=== PATIENT | male | born 1945 | race Caucasian/White ===

== ENCOUNTER → 2017-08-22 | Outpatient (CLI) | payer MEDICARE, OTHER ==
[2017-08-22 10:24] LABS: Blood Urea Nitrogen 21 mg/dL (9-20)
--- NOTE | 2017-08-23 11:08 | CT ---
EXAMINATION TYPE: CT abdomen pelvis wo con DATE OF EXAM: 08/22/2017 COMPARISON: NONE HISTORY: Hematuria, Rt flank pain, paint down Rt leg CT DLP: 1376.5 (abd pelvis without and abd with) mGycm Automated exposure control for dose reduction was used. TECHNIQUE: Helical acquisition of images was performed from the lung bases through the pelvis. FINDINGS: LUNG BASES: No significant abnormality is appreciated. LIVER/GB: No significant abnormality is appreciated. PANCREAS: No significant abnormality is seen. SPLEEN: No significant abnormality is seen. ADRENALS: No significant abnormality is seen. KIDNEYS/URETERS: No significant abnormality is seen. There is no hydronephrosis. No hydroureter. FREE AIR: No free air is visualized RETROPERITONEAL ADENOPATHY: None visualized REPRODUCTIVE ORGANS: The prostate is enlarged measuring 8 x 7 x 6 cm URINARY BLADDER: No significant abnormality is seen. No calcifications. PELVIC ADENOPATHY: None visualized. OSSEOUS STRUCTURES: No significant abnormality is seen. BOWEL: No significant abnormality is seen. The cecum is high positioned anatomically. The appendix i s retrocecal, with normal appearance. IMPRESSION: 1. NO ACUTE PROCESS. 2. PROSTATE HYPERTROPHY NOTED.
--- NOTE | 2017-08-23 11:13 | CT ---
EXAMINATION TYPE: CT abdomen w con DATE OF EXAM: 08/22/2017 COMPARISON: NONE HISTORY: Hematuria, Rt flank pain, paint down Rt leg CT DLP: 1376.5 (abd pelvis without and abd with) mGycm Automated exposure control for dose reduction was used. TECHNIQUE: Helical acquisition of images was performed from the lung bases through the top of iliac crest to include entire abdomen. CONTRAST: Performed with Oral Contrast and with IV Contrast, patient injected with 100 mL of Isovue 300. FINDINGS: LUNG BASES: No significant abnormality is appreciated. LIVER/GB: No significant abnormality is appreciated. PANCREAS: No significant abnormality is seen. SPLEEN: No significant abnormality is seen. ADRENALS: No significant abnormality is seen. KIDNEYS/UPPER COLLECTING SYSTEMS: No significant abnormality is seen. No calcifications. No hydroneph rosis. BOWEL: No significant abnormality is seen. LYMPH NODES: No significant abnormality is seen. OSSEOUS STRUCTURES: No significant abnormality is seen. FREE AIR: No free air is visualized. VASCULATURE: Unremarkable. IMPRESSION: NO ACUTE PROCESS; NO FOCAL FINDINGS.
== END | disposition home or self-care (01) ==
LOC: RADCTMAIN 09:43
PROVIDERS: ATTEND Urology
DX: N40.0 Benign prostatic hyperplasia without lower urinary tract symptoms (principal); R31.29 Other microscopic hematuria
CPT/HCPCS: 82565; 84520; 74160; 74176; 36415; Q9967

== ENCOUNTER → 2018-03-13 | Outpatient (CLI) | payer MEDICARE, OTHER | END | disposition home or self-care (01) | LOC: LABWHC1 14:27 | PROVIDERS: ATTEND Urology | DX: R97.20 Elevated prostate specific antigen [PSA] (principal) | CPT/HCPCS: 36415; 84153 ==

== ENCOUNTER 2024-03-20 15:53 | Inpatient (IN) | payer MEDICARE ==
[2024-03-20] MEDS: SODIUM CHLORIDE 0.9% 1,000 ML IV STA (16:15)
[2024-03-20 16:16] LABS: Basophils % (A) 0 %; Eosinophils # (A) 0.1 k/uL (0-0.7); Eosinophils % (A) 1 %; HCT 33.5 % (39.0-53.0); HGB 11.3 gm/dL (13.0-17.5); Lymphocytes # (A) 0.9 k/uL (1.0-4.8); Lymphocytes % (A) 7 %; MCH 32.5 pg (25.0-35.0); MCHC 33.7 g/dL (31.0-37.0); MCV 96.3 fL (80.0-100.0); Mean Platelet Volume 7.9; Monocytes # (A) 0.5 k/uL (0-1.0); Monocytes % (A) 4 %; Neutrophils # (A) 11.1 k/uL (1.3-7.7); Neutrophils % (A) 87 %; Platelet Count 214 k/uL (150-450); RBC 3.48 m/uL (4.30-5.90); RDW 13.3 % (11.5-15.5); WBC 12.7 k/uL (3.8-10.6)
[2024-03-20] MEDS: DIPH,PERTUS(ACELL)TETVAC-LF 0.5 ML VIAL IM ONE (16:19)
[2024-03-20 16:21] LABS: ALT 59 U/L (4-49); AST 55 U/L (17-59); African American GFR (CKD) 66 (>60 ml/min/1.73 sqM); Albumin 3.5 g/dL (3.5-5.0); Alcohol <10 mg/dL; Alkaline Phosphatase 60 U/L (38-126); Anion Gap 11 mmol/L; Blood Urea Nitrogen 66 mg/dL (9-20); Carbon Dioxide 23 mmol/L (22-30); Chloride 111 mmol/L (98-107); Glucose 101 mg/dL (74-99); Non-African American GFR(CKD) 57 (>60 ml/min/1.73 sqM); Potassium 3.9 mmol/L (3.5-5.1); Sodium 145 mmol/L (137-145); Total Bilirubin 0.8 mg/dL (0.2-1.3); Total Protein 5.8 g/dL (6.3-8.2)
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
[2024-03-20 16:32] LABS: INR 0.9 (<1.2); Prothrombin Time 10.5 sec (10.0-12.5)
[2024-03-20] MEDS ORDERED: ALBUMIN HUMAN 5% (25gm) 500 ML VIAL IVPB ONE (16:40)
[2024-03-20] MEDS ORDERED: PROPOFOL 10 MG/ML 20 ML VIAL IV ONE (16:40)
[2024-03-20] MEDS ORDERED: PHENYLEPHRINE 10 MG/ML VIAL ONE (16:40)
[2024-03-20] MEDS ORDERED: MIDAZOLAM 2 MG/2 ML VIAL ONE (16:40)
[2024-03-20] MEDS ORDERED: SUCCINYLCHOLINE CHLORIDE 200 MG/10 ML VIAL IV ONE (16:40)
[2024-03-20] MEDS ORDERED: ROCURONIUM 10 MG/ML (5 ML VIAL) IV ONE (16:40)
[2024-03-20] MEDS ORDERED: LIDOCAINE 1% INJ 10MG/ML (20 ML MDV) ONE (16:40)
--- NOTE | 2024-03-20 16:43 | XR ---
EXAMINATION TYPE: XR pelvis AP view DATE OF EXAM: 03/20/2024 4:36 PM COMPARISON: None CLINICAL INDICATION: Male, 78 years old with history of Trauma; pain [facility] TECHNIQUE: XR pelvis AP view, examined in a single projection. FINDINGS: There is no evidence of fracture or dislocation. There is no soft tissue abnormality. No a bnormal calcifications are present. The spine appears intact. The hips appear intact. Osteophyte form ation of the superior acetabulum bilaterally with mild joint space narrowing. IMPRESSION: No acute osseous pathology. Mild degeneration changes of the hip. [facility], , 03/20/2024 4:41 PM
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
[2024-03-20] MEDS: IV FLUID CONTINUATION 1,000 ML IV ONE (16:45)
[2024-03-20] MEDS: SODIUM CHLORIDE 0.9% 50 ML with ceFAZolin 1,000 MG IV ONE (16:45)
[2024-03-20] MEDS ORDERED: NALOXONE 0.4 MG/ML 1 ML VIAL IV PRN (16:48)
[2024-03-20] MEDS: LACTATED RINGERS 1,000 ML IV ONE (18:10)
[2024-03-20] MEDS ORDERED: Phosphorus Replacement Protoco 1 EACH MISC MISCELLANE PRN (18:32)
[2024-03-20] MEDS ORDERED: Magnesium Replacement Protocol 1 EACH MISC MISCELLANE PRN (18:32)
[2024-03-20] MEDS ORDERED: Potassium Replacement Protocol 1 EACH MISC MISCELLANE PRN (18:32)
[2024-03-20] MEDS ORDERED: IPRATROPIUM-ALBUTEROL 3 ML NEB INHALATION PRN (18:37)
[2024-03-20 18:38] LABS: Glucose,Whole Blood 98 mg/dL (70-110)
[2024-03-20] MEDS ORDERED: oxyCODONE-APAP 5-325MG 1 EACH TAB PO PRN (18:39)
[2024-03-20] MEDS: SODIUM CHLORIDE 0.9% 1,000 ML IV SCH (18:52)
[2024-03-20 19:03] LABS: ABG Base Excess -4.6 mmol/L; ABG HCO3 21 mmol/L (21-25); ABG Oxygen Saturation >100.0 % (94-97); ABG PCO2 41 mmHg (35-45); ABG PH 7.32 (7.35-7.45); ABG TCO2 23 mmol/L (19-24); Allen Test Performed? Yes
[2024-03-20 19:05] LABS: ABG PO2 >420 mmHg (83-108)
[2024-03-20 19:07] LABS: Amphetamine Screen,Urine Not Detected (NotDetected); Barbiturate Screen,Urine Not Detected (NotDetected); Benzodiazepines Screen,Urine Not Detected (NotDetected); Cocaine Screen,Urine Not Detected (NotDetected); Methadone Screen, Urine Not Detected (NotDetected); Opiate Screen,Urine Not Detected (NotDetected); Oxycodone Screen, Urine Not Detected (NotDetected); Phencyclidine Screen,Urine Not Detected (NotDetected); Tricyclic Antidepressant,Urine Not Detected (NotDetected); Urn Cannabinoid Scrn Not Detected (NotDetected)
--- NOTE | 2024-03-20 19:12 | XR ---
EXAMINATION TYPE: XR chest 1V DATE OF EXAM: 03/20/2024 6:54 PM COMPARISON: None. CLINICAL INDICATION: Male, 78 years old with history of intubation, TECHNIQUE: XR chest 1V view(s) obtained. FINDINGS: The heart size is normal. The pulmonary vasculature is normal. The lungs are clear. Endotracheal tube tip is 8.4 cm above the sindy. Nasogastric tube transverses the thorax the tip in the abdomen. IMPRESSION: 1. No acute pulmonary process. 2. Lines and catheters discussed above [facility], , 03/20/2024 7:10 PM
[2024-03-20] MEDS: HYDROmorphone 1 MG/ML 1 ML SYRINGE IVP PRN (19:13)
[2024-03-20] MEDS: IPRATROPIUM-ALBUTEROL 3 ML NEB INHALATION SCH (19:54)
[2024-03-20 19:57] VITALS: RESP 20
[2024-03-20] MEDS: HEPARIN SODIUM,PORCINE 5,000 UNIT/ML 1 ML VIAL SQ SCH (22:00)
[2024-03-20] MEDS: CHLORHEXIDINE GLUCONATE 15 ML CUP MUCOUS MEM SCH (22:02)
[2024-03-20 23:51] LABS: Basophils % (A) 0 %; Eosinophils % (A) 0 %; Lymphocytes % (A) 10 %; MCH 33.4 pg (25.0-35.0); MCHC 34.3 g/dL (31.0-37.0); MCV 97.2 fL (80.0-100.0); Mean Platelet Volume 8.5; Monocytes # (A) 0.4 k/uL (0-1.0); Monocytes % (A) 4 %; Neutrophils # (A) 8.5 k/uL (1.3-7.7); Neutrophils % (A) 85 %; Platelet Count 156 k/uL (150-450); RBC 2.58 m/uL (4.30-5.90); RDW 13.3 % (11.5-15.5)
[2024-03-20 23:59] LABS: African American GFR (CKD) 60 (>60 ml/min/1.73 sqM); Anion Gap 8 mmol/L; Blood Urea Nitrogen 62 mg/dL (9-20); Calcium 8.1 mg/dL (8.4-10.2); Carbon Dioxide 24 mmol/L (22-30); Chloride 112 mmol/L (98-107); Glucose 80 mg/dL (74-99); Non-African American GFR(CKD) 52 (>60 ml/min/1.73 sqM); Sodium 144 mmol/L (137-145)
[2024-03-21 00:10] LABS: HGB 8.6 gm/dL (13.0-17.5)
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
[2024-03-21 00:39] VITALS: TEMP 97.7
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
[2024-03-21] MEDS: metroNIDAZOLE-NS PMX 500 MG in SALINE 1 100ML.BAG IVPB SCH (01:47)
[2024-03-21 01:50] VITALS: BP 115/60; PULSE 122
[2024-03-21] MEDS ORDERED: PANTOPRAZOLE 40 MG/10 ML VIAL IV SCH (09:00)
== END 2024-03-21 02:00 | DRG 959 ==
LOC: EC 15:53 → 3SCARD 16:48 → 2SICU 17:36
PROVIDERS: ADMIT Surgery; ATTEND Surgery
PROC: 0DBU0ZZ Excision of Omentum, Open Approach (ICD-10-PCS; 2024-03-20)
PROC: 0BQT0ZZ Repair Diaphragm, Open Approach (ICD-10-PCS; 2024-03-20)
PROC: 0FQ00ZZ Repair Liver, Open Approach (ICD-10-PCS; principal; 2024-03-20 16:30)
DX: S36.113A Laceration of liver, unspecified degree, initial encounter (principal); S27.803A Laceration of diaphragm, initial encounter; S11.91XA Laceration without foreign body of unspecified part of neck, initial encounter; X78.9XXA Intentional self-harm by unspecified sharp object, initial encounter; Y92.099 Unspecified place in other non-institutional residence as the place of occurrence of the external cause; Y99.8 Other external cause status
CPT/HCPCS: 36415; 36600; 70491; 71045; 71260; 72170; 74177; 80048; 80053; 80306; 80320; 82805; 83605; 84484; 85025; 85610; 85730; 86850; 86900; 86901; 88305; 90471; 90715; 93005; 94002; 94003; 94640; 96365; 96366; 99285